=== PATIENT | male | born 1970 | race Caucasian/White ===

== ENCOUNTER → 2016-04-18 | Day surgery (SDC) | payer OTHER ==
[~2016-04-18] VITALS: Ht 162.6 cm; Wt 67.1 kg
[~2016-04-18] MED LIST: BACLOFEN20 M1 PO; LIORESAL I50 MCG/1 M IT; OMEPRAZOLE40 M1 PO; SINGULAIR10 M1 PO
--- NOTE | 2016-04-18 09:40 | Operative Report ---
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 The pt was given 2 gm kefzol in the OR prior to the procedure The pt was placed in lateral decubitus and using fluoroscopy , after sterile prep of the lumbar and sacral area, L3/4 interlaminar space was accessed without Heme or paresthesias using 22 G 3 1/2 inch spinal needle. At this point 50 sean of Lioresal ( baclofen ) was injected after aspirating CSF in to the 3 cc syringe and injection 1.5 ml and again aspirating total of 3 cc volume and injecting, slowly the total volume. the Needle was withdrawn, the puncture site cleaned and dressed sterile The pt was stable during the procedure and brought to recovery room and was [id number] with 5/5 MP in both lower extremities. Asha, from the PM&R will re assess the pt for the spasticity score using Modified Arabella Scale The pt will be observed in PACU for 2 PM and discharged home
--- NOTE | 2016-04-19 19:08 | RADIOLOGY REPORT ---
EXAMINATION: INTRAOPERATIVE FLUOROSCOPIC GUIDANCE AND LUMBAR SPINE CLINICAL INFORMATION: Baclofen pump placement. COMPARISON: None. TECHNIQUE: Fluoroscopic time was utilized in the OR for Dr. Guzman. Fluoroscopic images were obtained in AP and lateral projections. FINDINGS: Fluoroscopic guidance was provided during baclofen pump placement. A marker overlies the posterior elements at the level of L4. FLUOROSCOPY TIME: 30 seconds of fluoroscopic time was utilized for the entirety of this examination. IMPRESSION: Fluoroscopic guidance was provided during baclofen pump placement. A marker overlies the posterior elements at the level of L4.
== END ==
LOC: STS 04-08 07:00
DX: M96.1 Postlaminectomy syndrome, not elsewhere classified (principal); G12.21 Amyotrophic lateral sclerosis; G25.89 Other specified extrapyramidal and movement disorders; R53.1 Weakness; M79.661 Pain in right lower leg; M79.601 Pain in right arm; M54.2 Cervicalgia; G89.29 Other chronic pain
CPT/HCPCS: 72100; 97001-GP; 97161-GP; J0131; J0476; J0690; J2001; J2250

== ENCOUNTER → 2016-06-03 | Day surgery (SDC) | payer OTHER ==
[~2016-06-03] VITALS: Ht 162.6 cm; Wt 68.0 kg
--- NOTE | 2016-06-04 13:02 | Operative Report ---
See Addendum Operative/Inv Procedure Report Surgery Date: 06/03/16 Name of Procedure: Implant of intrathecal drug delivery system - Synchromed -II for baclofen infusion Pre-Operative Diagnosis: spasticity of both upper and lower extremiteis Primary Lateral Sclerosis, S/P ACDF Post-Operative Diagnosis: Spasticity of both upper and lower extremiteis Primary Lateral Sclerosis, S/P ACDF Estimated Blood Loss: 50ml to 100ml Surgeon/Black Top Machine Operator: MARIAMA SCHUMACHER MD Anesthesia: moderate sedation Monitors: per anesthesia Implants: Synchromed -II and Ascenda of [employer] system Drains: none Specimens: none Microbiology: none Tourniquet: none Complications: none Condition: Stable Operative Indication: 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 The pt understood and consented for the procedure . The pt was given 2 gm of kefazon IV prior to the procedure. The pt was placed lateral decubitus with left side up. All the pressure points were well padded. The surgical site right lateral / anterior abdominal and thoraco lumbar spine area was prepped and draped sterile. AP and lateral fluoroscopy was used for the placement and advancement of the Intrathecal catheter system of [employer] system. Combination of 2 % lidocaine and 0.5% Bupivacaine with Epi was used for local infiltration and the total amount used was documented in Nurse charts. L2/3 Interlaminar space was accessed at a shallow angle using the Tuohy Needle provided with Med[employer] Kit. When Free flow of CSF was noted, the Ascenda Catheter was advanced cephalad under direct fluoroscopy and the tip of catheter tip was stationed at T4/5 level. Contrast study with injection of Omnipaque showed intrathecal spread of the contrast. Free flow of CSF was also seen throughout the procedure. At this point the lumbar skin was incised around the Tuohy needle, down to para spinal tissues and the Tuohy needle was removed carefully monitoring the tip of catheter, un disturbed. At this point attention was drawn to the right lateral abdominal wall. Transverse skin incision was give for about 3 inches , over the previously marked skin, superior and inferior Subcutaneous flaps were raised with blunt and sharp dissection and hemostasis was secured. The tunnel Hernan was passed from the right abdominal wound to the lumbar wound in the subcutaneous pane. The Ascenda catheter was brought in to the right abdominal wound, Excess length of catheter was cut to accommodate the suture less connector that was connected to the pre programmed synchromed-II programmable pump (with Baclofen 500 sean/ mL concentration). The hemostasis was secured in the lumbar and abdominal wall wounds, and irrigated with Normal saline and bacitracin solution. The Elton was anchored to the ant. Abdominal fascia with 2-0 silk sutures. Both wounds were sutured in layers and skin with stapler. The pt tolerated the procedure well, remained stable hemodynamically and neurologically intact. Had 5/5 MP in the right lower extremity. The pump was programmed to infuse 100 sean/ day simple continuous infusion of baclofen intrathecally . ( The pt was treated with 50 sean single intrathecal bolus dose during the trial ) Findings: Evidence of L5/S1 disc disease with end plate sclerosis Discharge Disposition: Same Day Admissions Additional Comments: None CC: KARINE BEAN MD
--- NOTE | 2016-06-05 10:29 | RADIOLOGY REPORT ---
EXAMINATION: XR THORACIC SPINE C-arm fluoroscopy was provided in the operating room to assist Dr. Gentry Peña to place a baclofen pain pump. 4 spot images were obtained for documentation. Contrast is seen in the anterior epidural space of the thoracic spine. Note is also made of a multiple level anterior fusion of the lower cervical spine. Fluoroscopy time: 0.1 minutes Estimated dose: 0.0754 mGy-meter square
== END ==
LOC: STS 03:04
DX: G12.29 Other motor neuron disease (principal); G25.89 Other specified extrapyramidal and movement disorders; R05 Cough; M79.605 Pain in left leg; M79.604 Pain in right leg; M25.612 Stiffness of left shoulder, not elsewhere classified
CPT/HCPCS: 72070; C1755; C1772; J0475; J0690; J2001; J2250

== ENCOUNTER 2016-06-05 08:41 | Observation (INO) | payer OTHER ==
[~2016-06-05] VITALS: Ht 162.6 cm; Wt 64.9 kg
[~2016-06-05 08:41] MED LIST changes: -LIORESAL I50 MCG/1 M IT
[2016-06-05] MEDS ORDERED: LIORESAL I50 MCG/1 M IT (09:28)
--- NOTE | 2016-06-05 09:30 | ED GENERAL ADULT ---
History of Present Illness General Chief Complaint: General Adult Stated Complaint: ? DEHYDRATION Source: patient, family Exam Limitations: no limitations Vital Signs & Intake/Output Vital Signs & Intake/Output Vital Signs Date Time Temp Pulse Resp B/P Pulse O2 O2 Flow FiO2 Ox Delivery Rate 06/05 1511 98.4 98 18 97/69 100 Room Air 06/05 1410 97.7 79 20 110/78 100 Room Air 06/05 1228 97.5 81 18 106/67 99 Room Air 06/05 1010 96 Room Air 06/05 1010 97.7 74 18 106/71 100 Room Air 06/05 0847 96.1 92 18 112/74 94 Room Air Allergies Coded Allergies: morphine (Severe, NAUSEA / VOMITING 06/05/16) Reconcile Medications Baclofen 20 MG TABLET 10 MG PO TID MUSCLE SPASMS (Reported) Baclofen (Lioresal Intrathecal) (Unknown Strength) AMPUL (Unknown Dose) MUSCLE SPASMS (Reported) HAS BACLOFEN PUMP, UNSURE OF STRENGTH Omeprazole 40 MG CAPSULE.DR 1 CAP PO PRN GERD (Reported) Triage Note: 46 YEAR OLD MALE WITH HISTORY OF PRIMARY LATERAL SCLEROSIS , STATES THAT HE HAD BACLOFEN PUMP PLACED THURSDAY IN HIS ABD AND THAT HE IS JUST NOT FEELING WELL, PT PALE, COMPLAINS OF HEADACHES AND FEELING VERY WEAK, ALSO STATES THAT HE HAS NAUSEA. Triage Nurses Notes Reviewed? yes HPI: Patient is a 46-year-old male presents complaining of headache, nausea, generalized weakness. Patient had a baclofen pump placed on Thursday, patient had an epidural for the procedure. Headache onset yesterday. Headache is a diffuse pain is currently severe. Associated nausea and chills. Symptoms are currently severe. Patient contacted his pain management doctor was sent to the emergency department for further evaluation and likely to go to the OR for a blood patch. Positive neck pain. Patient has not had a bowel movement for approximately 3-4 days. Denies abdominal pain. Patient denies fevers, vomiting Past History Travel History Traveled to [place] past 21 day No Medical History Any Pertinent Medical History? see below for history Neurological: NONE EENT: NONE Cardiovascular: NONE Respiratory: NONE Gastrointestinal: NONE Hepatic: NONE Renal: NONE Musculoskeletal: PRIMARY LATERAL SCLEROSIS Psychiatric: NONE Endocrine: NONE Blood Disorders: NONE Cancer(s): NONE Surgical History Surgical History: baclofen pump placement Psychosocial History Who do you live with Family What is your primary language [place] Tobacco Use: Never used ETOH Use: denies use Illicit Drug Use: denies illicit drug use Family History Hx Contributory? No Review of Systems Review of Systems Constitutional: Reports: chills, malaise, weakness. Denies: fever. EENTM: Reports: no symptoms. Respiratory: Denies: cough, short of breath. Cardiovascular: Denies: chest pain. GI: Reports: constipation, nausea. Denies: abdominal pain, vomiting. Genitourinary: Reports: no symptoms. Musculoskeletal: Reports: neck pain. Skin: Reports: no symptoms. Neurological/Psychological: Reports: headache. Denies: numbness. Hematologic/Endocrine: Denies: bleeding. Immunologic/Allergic: Denies: splenectomy. Physical Exam Physical Exam General Appearance: alert, awake Head: atraumatic, normal appearance Eyes: Bilateral: normal appearance, PERRL, EOMI. Ears, Nose, Throat: normal pharynx, mildly dry mucous membranes Neck: normal inspection, supple, full range of motion Respiratory: normal breath sounds, chest non-tender, no respiratory distress, lungs clear Cardiovascular: regular rate/rhythm Gastrointestinal: normal bowel sounds, soft, surgical wound right midabdomen. Mild surrounding tenderness. Neurologic/Psych: awake, alert, oriented x 3, full range of motion of all 4 extremities Skin: warm/dry Lymphatic: no anterior cervical jabari Core Measures ACS in differential dx? No CVA/TIA Diagnosis: No Severe Sepsis Present: No Septic Shock Present: No Progress Differential Diagnoses I considered the following diagnoses in my evaluation of the patient: Baclofen withdrawal, post LP headache, meningitis, postoperative infection, influenza, viral upper respiratory infection Plan of Care: Orders Procedure Date/time Status COMPREHENSIVE METABOLIC PANEL 06/05 933 Complete CBC WITHOUT DIFFERENTIAL 06/05 933 Complete Laboratory Tests 06/05/16 1039: Anion Gap 9, Estimated GFR > 60, BUN/Creatinine Ratio 15.0, Glucose 108 H, Calcium 9.2, Total Bilirubin 0.5, AST 12 L, ALT 25, Alkaline Phosphatase 73, Total Protein 6.8, Albumin 4.0, Globulin 2.8, Albumin/Globulin Ratio 1.4 06/05/16 0958: CBC w Diff MAN DIFF ORDERED, RBC 5.08, MCV 86.8, MCH 28.7, RDW 14.3, MPV 7.8, Gran % 87.4 H, Lymphocytes % 7.0 L, Monocytes % 4.8, Eosinophils % 0.6, Basophils % 0.2, Absolute Granulocytes 8.8 H, Absolute Lymphocytes 0.7 L, Absolute Monocytes 0.5, Absolute Eosinophils 0.1, Absolute Basophils 0, Platelet Estimate ADEQUATE, Normocytic RBCs VERIFIED, Normochromic RBCs VERIFIED, PUBS MCHC 33.1 06/05/2016 11:04:19 AM: Patient reports mild to moderate improvement of nausea and pain. Declining any further medication. Patient awaiting evaluation by his pain specialist and likely to OR for blood patch. 06/05/2016 1:18:38 PM: Discussed with Dr. Peña: Plan for OR at approximately 1530, continue to give IV fluids to patient. (KRISTA NG,ALEXA) Initial ED EKG: none Departure Departure Disposition: STILL A PATIENT Condition: Stable Clinical Impression Primary Impression: Headache, post-lumbar puncture Referrals: NADEGE GREGORY,YESSY Alejandre (PCP/Family) Departure Forms: Customer Survey General Discharge Information OR/GI Note Spoke With: ENDY GREGORY,MARIAMA Lopez ED Treatment Decision: NuviaMARCCHRISTINE requires urgent operative management or an emergent procedure that cannot be performed in the Emergency Room setting. Transport To: [facility] Critical Care Note Critical Care Note Critical Care Time: non-applicable
[2016-06-05 10:03] LABS: ABSOLUTE BASOPHIL COUNT 0 /CUMM (0.0-0.2); ABSOLUTE EOSINOPHIL COUNT 0.1 /CUMM (0.0-0.7); ABSOLUTE GRANULOCYTE CT 8.8 /CUMM (1.4-6.5); ABSOLUTE LYMPH COUNT 0.7 /CUMM (1.2-3.4); ABSOLUTE MONOCYTE COUNT 0.5 /CUMM (0.10-0.60); BASOPHIL % 0.2 % (0.0-2.0); EOSINOPHIL % 0.6 % (0-5); GRANULOCYTE % 87.4 % (42.2-75.2); HEMATOCRIT 44.1 % (42-52); MEAN CORPUSCULAR HGB 28.7 PG (27.0-31.0); MEAN CORPUSCULAR HGB CONC 33.1 G/DL (33.0-37.0); MEAN CORPUSCULAR VOLUME 86.8 FL (80.0-94.0); MEAN PLATELET VOLUME 7.8 FL (7.4-10.4); PLATELET COUNT 268 /CUMM (130-400); RBC DISTRIBUTION WIDTH 14.3 % (11.5-14.5); RED BLOOD CELL CT 5.08 /CUMM (4.70-6.10); WHITE BLOOD CELL COUNT 10.1 /CUMM (4.8-10.8)
--- NOTE | 2016-06-05 17:13 | RADIOLOGY REPORT ---
EXAMINATION: XR LUMBOSACRAL SPINE CLINICAL INFORMATION: Verbal order. Blood patch. Lumbar puncture. COMPARISON: None TECHNIQUE: AP and lateral fluoroscopic views of the lumbosacral spine were obtained. Total fluoroscopic time 14.5 seconds. FINDINGS: A lumbar puncture needle is in place at the level of L3-L4. This is in expected positioning. IMPRESSION: Fluoroscopic guidance for lumbar puncture. Please see procedural report for further information.
--- NOTE | 2016-06-05 17:54 | Operative Report ---
Operative/Inv Procedure Report Surgery Date: 06/05/16 Name of Procedure: Lumbar Epidural autologous Blood patch - L 3/4 level Pre-Operative Diagnosis: S/P implant of Synchromed -II with post op RYDER due to dural puncture and CSF leak Post-Operative Diagnosis: Same Estimated Blood Loss: scant Surgeon/Grinding Operator: Gentry Peña / Asst: None Anesthesia: moderate sedation Monitors: Per Anesthesia IV Fluids: Per Anesthesia Implants: None Urine Output: Per Anesthesia Drains: None Specimens: None Microbiology: None Tourniquet: None Complications: None Condition: Stable Operative Indication: Patient with Primary Lateral Sclerosis, Bilateral Upper and lower extremity spasticity, responded favorably to the Intrathecal Baclofen trial and underwent Implant of Synchromed II for the continuous infusion of the Baclofen, on , developed PDPH due to pericatheter leak of CSF. Conservative therapy failed . Today scheduled for autologous lumbar epidural blood patch Operative/Procedure Note Note: I discussed with the pt about the risks and benefits of the above procedure - - infection, bleeding, increased lower back pain. The pt consented for the procedure. Pt was given 2 Gm Kefzol, prior to the procedure. Patient was placed prone on the OR table and lumbar area prepped sterile. Under fluoroscopic guidance, at the L3/4 interlaminar space ( the catheter entered at L2/3 space) the skin was infiltrated with 1 % lidocaine solution and using 18 G Tuohy needle the epidural space was accessed without any CSF or Heme. The epidural position of the needle was confirmed by injection of Omnipaque 240 about 1 ml and observing the epidural spread of contrast under lateral fluoroscopy. With the help of anesthesiology MD, under sterile conditions 20 ml of blood was drawn. Relative difficult for the blood aspiration and it required 2 sites for the draw of above volume. Under sterile conditions the blood was injected in to the epidural space. The needle was withdrawn, the op site and the puncture site was dressed sterile. Findings: None Discharge Disposition: Same Day Admissions CC: BALAJI GREGORY,CECILY
[2016-06-05 19:15] VITALS: BP 120/76
--- NOTE | 2016-06-05 20:05 | History & Physical ---
ARLEEN TALLEY MD 06/05/16 2005: General Information and HPI MD Statement: I have seen and personally examined CHRISTINE MIRAMONTES and documented this H&P. The patient is a 46 year old M who presented with a patient stated chief complaint of []. 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 For which he was given trial of baclofen injection in April 18, after which he felt improvement in his spasticity so decided to have baclofen pump. On June 03, intrathecal baclofen injection insertion was done. After pump insertion he started having severe headache and generalized weakness. He was told that this was due to pericatheter leak of CSF. After failed conservative therapy, he was advised to have blood patch procedure, which was done by Dr. Mariama Peña on Jun 05. The family wanted the patient should be kept in the hospital because he is having unsteady gait, despite of baclofen pump. After blood patch procedure, patient felt improvement in symptoms including nausea, headache, weakness. His Neurologist - Dr Cline Allergies - ? Morphine Family history-not significant Social history-Lives with /2,children /mother. Denies smoking, illicit drug use, uses alcohol socially. He is able to do all his daily activities without any assistance. Surgery-tonsillectomy Allergies/Medications Allergies: Coded Allergies: morphine (Severe, NAUSEA / VOMITING 06/05/16) Compliance With Home Meds: GOOD Past History Travel History Traveled to [place] past 21 day No Medical History Blood Transfusion Hx: No Neurological: PRIMARY LATERAL SCLEROSIS WEAKNESS, MUSCLE SPASMS EENT: NONE Cardiovascular: NONE Respiratory: NONE Gastrointestinal: NONE Hepatic: NONE Renal: NONE Musculoskeletal: PRIMARY LATERAL SCLEROSIS L TORN ROTATOR CUFF Psychiatric: NONE Endocrine: NONE Blood Disorders: NONE Cancer(s): NONE Isolation History: Standard Surgical History Surgical History: baclofen pump placement Past Family/Social History Psychosocial History Smoking Status: Unknown If Ever Smoked ETOH Use: denies use Illicit Drug Use: denies illicit drug use Review of Systems Review of Systems Constitutional: Denies: no symptoms. EENTM: Denies: no symptoms. Cardiovascular: Denies: no symptoms. Respiratory: Denies: no symptoms. GI: Denies: no symptoms. Genitourinary: Denies: no symptoms. Musculoskeletal: Reports: back pain. Skin: Denies: no symptoms. Neurological/Psychological: Denies: no symptoms. Exam & Diagnostic Data Last 24 Hrs of Vital Signs/I&O Vital Signs Date Time Temp Pulse Resp B/P Pulse O2 O2 Flow FiO2 Ox Delivery Rate 06/05 2338 98.1 79 18 112/70 99 Room Air 06/05 1915 98.6 86 18 120/76 97 Room Air 06/05 1511 98.4 98 18 97/69 100 Room Air 06/05 1410 97.7 79 20 110/78 100 Room Air 06/05 1228 97.5 81 18 106/67 99 Room Air 06/05 1010 96 Room Air 06/05 1010 97.7 74 18 106/71 100 Room Air 06/05 0847 96.1 92 18 112/74 94 Room Air Intake & Output 06/06 0800 06/06 0000 06/05 1600 Intake Total 2000 Output Total 1150 200 Balance -1150 1800 Intake, IV 2000 Output, Urine 1150 200 Patient 64.864 kg 64.864 kg Weight Physical Exam General Appearance Alert, Oriented X3, Cooperative, No Acute Distress Skin No Rashes, No Breakdown HEENT Atraumatic, PERRLA, EOMI Neck Supple, No JVD Cardiovascular Normal S1, Normal S2 Lungs Clear to Auscultation, Normal Air Movement Abdomen Soft, No Tenderness, there is a pump inserted on right periumbilical area, was under clean dresssing Neurological Normal Speech Extremities No Clubbing, No Cyanosis, No Edema Vascular Normal Pulses, Pulses Symmetrical Last 24 Hrs of Labs/Malcolm: Laboratory Tests 06/05/16 1039: Anion Gap 9, Estimated GFR > 60, BUN/Creatinine Ratio 15.0, Glucose 108 H, Calcium 9.2, Total Bilirubin 0.5, AST 12 L, ALT 25, Alkaline Phosphatase 73, Total Protein 6.8, Albumin 4.0, Globulin 2.8, Albumin/Globulin Ratio 1.4 06/05/16 0958: CBC w Diff MAN DIFF ORDERED, RBC 5.08, MCV 86.8, MCH 28.7, RDW 14.3, MPV 7.8, Gran % 87.4 H, Lymphocytes % 7.0 L, Monocytes % 4.8, Eosinophils % 0.6, Basophils % 0.2, Absolute Granulocytes 8.8 H, Absolute Lymphocytes 0.7 L, Absolute Monocytes 0.5, Absolute Eosinophils 0.1, Absolute Basophils 0, Platelet Estimate ADEQUATE, Normocytic RBCs VERIFIED, Normochromic RBCs VERIFIED, PUBS MCHC 33.1 Assessment/Plan Assessment: Patient is a 46-year-old male with the significant Past Medical History of 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 For which he was given trial of baclofen injection in April 18, after which he felt improvement in his spasticity so decided to have baclofen pump. On June 03, intrathecal baclofen injection insertion was done. After pump insertion he started having severe headache and generalized weakness. He was told that this was due to pericatheter leak of CSF. After failed conservative therapy, he was advised to have blood patch procedure, which was done by Dr. Mariama Peña on Jun 05. The family wanted the patient should be kept in the hospital because he is having unsteady gait, despite of baclofen pump. Vital signs at the time of admission - temperature 96.1, pulse 92, respiratory 18, blood pressure 112/74, SPO2 94% on room air Pertinent labs-WBC 10.1, K-3.9 Plan - Primary lateral sclerosis on baclofen pump * We will keep the patient under observation, on general medical floor for next 24 hours * We'll watch for any pain and manage accordingly * We will continue the patient on tablet baclofen 20 milligrams 3 times a day, but will discuss about the doses, as patient is having by mouth and infusion pump for baclofen. * PT/OT * Vitals every shift Constipation * We'll add MiraLAX, senna, Colace, for constipation * Strict intake output charting Diet-heart healthy diet DVT prophylaxis-ALP S, we will avoid heparin CODE STATUS-full code As Ranked By This Provider Problem List: 1. Lateral sclerosis 2. Constipation Core Measures/Miscellaneous Acute Coronary Syndrome ACS Diagnosis: No Cerebrovascular Accident CVA/TIA Diagnosis: No Congestive Heart Failure CHF Diagnosis: No Venous Thromboembolism VTE Risk Factors: Age > 40 VTE Prophylaxis Ordered Inpt: Mechanical (ALPS/TEDS) No Mech VTE prophylaxis d/t: No contraindications No VTE Pharm Prophylaxis d/t: No contraindications VTE Diagnosis: No VTE Type: NONE VTE Confirmed by (Test): NONE Severe Sepsis Severe Sepsis Present: No Septic Shock Septic Shock Present: No Miscellaneous Documentation Attending Case Discussed With: ENDY GREGORY,MARIAMA Lopez Primary Care Physician: NADEGE GREGORY,YESSY Alejandre Patient sees these Specialists none Level of Patient Care: General Medicine MUSTAPHA LAURENT MD 06/05/16 8575: General Information and HPI Allergies/Medications Home Med list Baclofen 20 MG TABLET 1 TAB PO TID MUSCLE SPASMS (Reported) Baclofen (Lioresal Intrathecal) (Unknown Strength) AMPUL (Unknown Dose) MUSCLE SPASMS (Reported) HAS BACLOFEN PUMP, UNSURE OF STRENGTH Omeprazole 40 MG CAPSULE.DR 1 CAP PO PRN GERD (Reported) Attending MD Review Statement Attending Statement Attending MD Statement: examined this patient, discuss w/resident/PA/HEAD PORTER, agreed w/resident/PA/HEAD PORTER, reviewed EMR data (avail), discussed with nursing, discussed with case mgmt, amended to note Attending Assessment/Plan: Patient is a 46-year-old male with medical history significant for primary lateral sclerosis. Due to intractable lower extremity spasticity he had an intrathecal baclofen pump placed by his paint booth operator 2 days ago. Yesterday he developed severe headache progressed which progressed so he came to the emergency room for evaluation today. Was found to have CSF leak and a blood patch was placedby his paint booth operator Dr. Mariama Peña . There were no complications reported during the procedure however family is very reluctant to take the patient home due to significant unsteady gait despite placement of baclofen pump.at baseline he ambulates without use of any assistive device. he was referred to the medical service for evaluation. On examination patient is a lot, especially. He does not appear to be in acute distress. He reported some abdominal discomfort on the position of the bone and some back discomfort on the position the wire. Complains of constipation for the past 3 days denies nausea vomiting. Denies diarrhea or bloody stools. Denies dysuria on examination power is 5 over 5 in all extremities. Recommendations: -Place on 24-hour observation on the general medical service. -Continue baclofen overnight. -Pain management consultation in the morning. -Begin patient on a bowel regimen. -DVT prophylaxis with compression devices only. JOHN MORALES 06/06/16 0329: Resident Review Statement Resident Statement: discussed with wildlife biology internship Other Findings: His 46-year-old man with past medical history of primary lateral sclerosis diagnosed in 2014 with bilateral upper and lower extremities spasticity. He was seen by pain specialist, Dr. Peña, and had intrathecal baclofen trial on April 18. Later on on June 03 he got an implant of intrathecal drug delivery system - Synchromed -II for continuous baclofen infusion. Patient presented to ER with complaint of severe headache, nausea and chills. Patient contacted his pain management doctor was sent to the emergency department for further evaluation. Because his headache was postprocedure so there was a high possibility that it could be due to Dura puncture and CSF leak. Now patient is status post Lumbar Epidural autologous Blood patch - L 3/4 level. Patient was admitted per family request. Currently patient offers no complaints. His headache is better and nausea has improved. Reports constipation. Normally patient lives with his family, one and 2 kids. He walks independently without any assistance. He does not work and is on disability. Drinks alcohol occasionally. Denies smoking and recreational drug use. Vitals stable. Positive physical exam findings: A small bandage on right side of his abdomen and on his lower back. Neuro exam normal. Labs including CBC and CMP are normal Plan We will monitor vitals every shift. Patient already has a continuous intrathecal baclofen pump. He is unaware of dose but reported that he is on lowest dose right now. We will continue his home dose of baclofen 20 mg 3 times a day. Bowel regimen for constipation. Alps for DVT prophylaxis. Full code
[2016-06-05 23:38] VITALS: BP 112/70
[2016-06-06 08:12] VITALS: BP 130/72
--- NOTE | 2016-06-06 10:52 | PN- Housestaff ---
ANJELICA GREGORY,ANGELICA 06/06/16 1052: Subjective Follow-up For: Headache Dizziness s/p intrathecal pump Complaints: no complaints Subjective: He is doing well after blood patch. He denies any headache, n/v, dizzness this morning. At baseline, he uses a walker. Review of Systems Constitutional: Denies: chills, fever, weakness. EENTM: Denies: double vision, visual changes, nasal congestion, nasal pain, throat pain. Cardiovascular: Denies: chest pain, orthopena, palpitations, peripheral edema. Respiratory: Denies: cough, short of breath, sputum production, wheezing. Gastrointestinal: Denies: abdominal pain, constipation, nausea, vomiting. Genitourinary: Reports: no symptoms. Musculoskeletal: Reports: no symptoms. Skin: Reports: no symptoms. Neurological/Psychological: Reports: see HPI, pre-existing deficit, other (spasticity). Hematologic/Endocrine: Reports: no symptoms. Objective Last 24 Hrs of Vital Signs/I&O Vital Signs Date Time Temp Pulse Resp B/P Pulse O2 O2 Flow FiO2 Ox Delivery Rate 06/06 0812 98.8 81 20 130/72 100 Room Air 06/05 2338 98.1 79 18 112/70 99 Room Air 06/05 1915 98.6 86 18 120/76 97 Room Air 06/05 1511 98.4 98 18 97/69 100 Room Air 06/05 1410 97.7 79 20 110/78 100 Room Air Intake & Output 06/06 1600 06/06 0800 06/06 0000 Intake Total Output Total 450 1150 1150 Balance -450 -1150 -1150 Output, Urine 450 1150 1150 Patient 143 lb Weight Physical Exam General Appearance: Alert, Oriented X3, Cooperative, No Acute Distress Skin: No Rashes, No Breakdown, No Significant Lesion HEENT: Atraumatic, PERRLA, EOMI, Mucous Membr. moist/pink Neck: Supple, No JVD, No LAD Lymphatic: Cervical nl Cardiovascular: Regular Rate, Normal S1, Normal S2, No Murmurs Lungs: Clear to Auscultation, Normal Air Movement Abdomen: Normal Bowel Sounds, Soft, No Tenderness Neurological: Normal Speech, Strength at 5/5 X4 Ext, Sensation Intact, Cranial Nerves 3-12 NL, increased tone with spasticity Extremities: No Edema, Normal Pulses, No Tenderness/Swelling Vascular: Normal Pulses, Pulses Symmetrical Current Medications: Current Medications Sig/Yumiko Start time Last Medication Dose Route Stop Time Status Admin Baclofen 20 MG TID 06/050 AC 06/06 PO 0922 Polyethylene Glycol 17 GM DAILY NEEDED PRN 06/05 2229 AC PO Senna/Docusate Sodium 1 TAB BID PRN 06/05 2229 AC PO Sodium Chloride 1,000 ML BOLUS ONE 06/05 1330 DC 06/05 IV 06/05 1429 1324 Lines/Diet/Fluids Lines: peripheral lines Assessment/Plan Assessment: 46-year-old male with pmh of primary lateral sclerosis s/p intrathecal baclofen pump on 06/[address] Peña p/w severe headache. He was found to have CSF leak and a blood patch was placed by Dr. Gentry Peña on the day of admission. He was on observation for significantly unsteady gait. 1. Primary lateral sclerosis s/p intrathecal baclofen pump & blood patch: Patient was on 24-hour observation on the general medical service. He was continued on home po baclofen as IT pump is not managing spasticity well. He doesn't have any headache or dizziness now. He'll follow up with Dr. Peña next week. PT evaluation recommended home self care. DVT prophylaxis with compression devices only Full code. Problem List: 1. Lateral sclerosis 2. Headache, post-lumbar puncture Pain Ratin Pain Location: NA Pain Goal: Remain pain free Pain Plan: baclofen Tomorrow's Labs & Rationales: DC today DVT/Prophylaxis: mechanical Discharge Plan Stable for Discharge? Yes LEIGHTON MCPHERSON MD 06/06/16 1436: Attending MD Review Statement Attending Statement Attending MD Statement: examined this patient, discuss w/resident/PA/BACKHOE OPERATOR, agreed w/resident/PA/BACKHOE OPERATOR, reviewed EMR data (avail), discussed with nursing, discussed with case mgmt, amended to note Attending Assessment/Plan: The patient states headache resolved post blood patch and did well with PT today. OK to discharge to home today.
--- NOTE | 2016-06-06 11:46 | Patient Discharge Instructions ---
Discharge Instructions General Discharge Information You were seen/treated for: Headache s/p intrathecal baclofen pump & CSF leak You had these procedures: Lumbar Epidural autologous Blood patch - L 3/4 level Watch for these problems: Worsening headache, fever Special Instructions: Please follow up with Dr. Peña regarding intrathecal baclofen pump Please follow up with a primary doctor after discharge within 1 week Diet Continue normal diet: Yes Recommended Diet: Regular Activity Full Activity/No Limits: No Activity Self Limited: Yes Activity Limited to: Walking with Assistance Additional ACTIVITY Info: Continue use of a walker Increase activity as tolerated Acute Coronary Syndrome Inclusion Criteria At DC or during hospital stay patient has or had the following: ACS DIAGNOSIS No Discharge Core Measures Meds if any: Prescribed or Continued at Discharge Meds if any: NOT Prescribed or Continued at Discharge Congestive Heart Failure Inclusion Criteria At DC or during hospital stay patient has or had the following: CHF DIAGNOSIS No Discharge Core Measures Meds if any: Prescribed or Continued at Discharge Meds if any: NOT Prescribed or Continued at Discharge Cerebrovascular accident Inclusion Criteria At DC or during hospital stay patient has or had the following: CVA/TIA Diagnosis No Discharge Core Measures Meds if any: Prescribed or Continued at Discharge Meds if any: NOT Prescribed or Continued at Discharge Venous thromboembolism Inclusion Criteria VTE Diagnosis No VTE Type NONE VTE Confirmed by (Test) NONE Discharge Core Measures - Per Current guidelines, there needs to be overlap - treatment for the first 5 days of Warfarin therapy. - If discharged on Warfarin prior to 5 days of - overlap therapy, the patient will need to be - assessed for post discharge needs including - *Post discharge parental anticoagulation - *Warfarin and/or parental anticoagulation education - *Follow up date to check INR post discharge At least 5 days overlap therapy as Inpatient No Meds if any: Prescribed or Continued at Discharge Note: Overlap Therapy is Warfarin and Anticoagulant Meds if any: NOT Prescribed or Continued at Discharge
== END 2016-06-06 14:00 ==
LOC: ENRESERVDT → ENRESERVTM → ERH 08:41 → ER-OR 09:15 → PACUH 17:38 → 2NB 17:38 → ENPENDDIS 17:38 → 2NB 19:00
PROVIDERS: Physician Assistant; ADMIT Anesthesiology
DX: G12.29 Other motor neuron disease (principal); K59.00 Constipation, unspecified; K21.9 Gastro-esophageal reflux disease without esophagitis; R51 Headache
CPT/HCPCS: 6040; 72100; 96361; 96374; 96375; 97116-GP; 97161-GP; 97530-GP; 99291; G0378; J0690; J2765